=== PATIENT | male | born 1965 | race Caucasian/White ===

== ENCOUNTER 2024-04-10 06:27 | Day surgery (SDC) | payer BC, SELFPAY ==
[2024-04-02 09:06] VITALS: BMI 27.9
[2024-04-10] VITALS (9 sets, daily range): BP systolic 114–163; BP diastolic 78–98; BMI 27.9; BMI 28.4
[2024-04-10] MEDS: TYLENOL 1000 MG PO (08:54)
[2024-04-10] MEDS: NORMOSOL-R 1000 IV (09:07)
--- NOTE | 2024-04-10 09:52 | W.SUR.PREOP ---
Pre-Operative Surgical Note
-
I have examined this patient prior to the performance of the scheduled procedure.
The patient's condition is unchanged from the time of the current History and
Physical and the patient is able to undergo the scheduled procedure.
--- NOTE | 2024-04-10 11:55 | W.IMMPOSTOP ---
Surgical Immed Post Op Note
-
Primary Surgeon: Jasvir Garcia MD
Assisting Surgeon: None
Pre-op Diagnosis: Left inguinal hernia
Post-op Diagnosis: Same
Procedure Performed: Robotic left inguinal hernia repair with mesh
Anesthesia Type: General
Specimen / Cultures: Left cord lipoma
Estimated Blood Loss: 3 cc
Complications: None
Operative Findings: Indirect left inguinal hernia. No defect noted on the right side. No direct or femoral components. Small cord lipoma reduced and removed. Floor reinforced with a large left Bard 3D max uncoated polypropylene mesh
POST OP PLAN:
Will discharge home with an ice pack after voiding.
--- NOTE | 2024-04-10 12:03 | OR.RPT ---
Operative Report
Operative Report
Patient Name: Garry Razo
: 1965
Date of Operation: 04/10/2024
Preoperative Diagnosis: Reducible Inguinal hernia, left
Postoperative Diagnosis: Same
Procedure(s):
Robotic Left Inguinal Hernia Repair with mesh, (FREDY approach)
Surgeon(s):
Dr. Garcia
Borematic Operator(s):
MARY BETH Ya
Anesthesia: General
Estimated Blood Loss: 3 cc
Urine Output: None
Drains/Lines/Implants: Large 3D Max Bard mid weight polypropylene, uncoated mesh
Specimens: None
Indication for surgery: The patient has a history of groin pain and noted on exam to have a Left inguinal Hernia and possible right inguinal hernia. Following review of therapeutic options they have elected to undergo a minimally invasive repair.
Operative Findings: Indirect left inguinal hernia. No defect noted on the right side. No direct or femoral components. Small cord lipoma reduced and removed. Floor reinforced with a large left Bard 3D max uncoated polypropylene mesh
Details of the operation:
The patient was brought to the Operating Room and placed in the supine position with the arms tucked. IV antibiotics were infused and Venodyne stockings placed. Following uneventful induction of general endotracheal anesthesia, an orogastric tube
were placed. The abdomen was prepped and draped in the usual sterile fashion. The abdomen was entered using a Veress technique which required 1 pass, pneumoperitoneum to 15 mmHg was obtained without difficulty. An 8mm trochar was passed through
the abdominal wall roughly 20 cm cephalad to the inguinal canal. We then confirmed that no inadvertent injury was made while passing the trocar or Veress needle. We then placed two additional 8 mm ports in the left upper and right upper quadrants.
We then docked the robot with a Prograsper in the left hand port and monopolar scissors in the right. A left inguinal hernia could be readily appreciated, and there was no defect on the right. We then began by creating a flap on the left side at
the level of the ASIS laterally working our way medially to the medial umbilical fold. Staying onto the peritoneum we were able to circumferentially dissect around the hernia sac and and peel it off of the underlying spermatic cord and testicular
vessels, taking care to preserve them. Medially we identified the midline pubis as well as Ishan's ligament and ensured to dissect 2 cm below the pubic rim over the bladder. After exposure of the entire myopectineal orifice we identified and
reduced: A small sized indirect inguinal hernia, no direct inguinal hernia, no femoral hernia, and a small cord lipoma, which was removed
We then fixated a large 3D max mesh with a 2-0 Vicryl stitch at coopers medially and superior laterally. The flap was then closed with a running 2-0 barbed monocryl suture ensuring that the tail was cut flush with the medial fat pad so that no
barbs were exposed. During the closure of the flap a suction cannula was inserted and 20 cc of quarter percent Marcaine was instilled. The area in the flap cavity was then evacuated of air confirming that the mesh was flush and there were no
folds. There was no rent in the peritoneum. All needles, instruments as well as the lipoma were then removed and the robot was undocked. The abdomen was then desufflated, and pneumoperitoneum evacuated. All skin sites were then closed with 4-0
Monocryl followed by Dermabond. Counts were correct and overall, the patient tolerated the procedure well and was taken to the Recovery Room postoperatively in stable condition.
Preeti was the attending physician and performed the procedure with assistance of the PA above. The assistance of Park Cárdenas was required due to the complexity of the procedure. During the procedure Park assisted with retraction, passing instruments,
specimen removal, and closure of the wound. I was present for all portions of the case except for skin closure.
Jasvir Garcia MD
== END 2024-04-10 13:42 | disposition home or self-care (01) ==
LOC: SDS 06:27
PROVIDERS: ATTENDING PHYSICIAN Surgery; FAMILY PHYSICIAN Family Medicine
DX: K40.90 Unilateral inguinal hernia, without obstruction or gangrene, not specified as recurrent (principal); D17.6 Benign lipomatous neoplasm of spermatic cord
CPT/HCPCS: 49650; 88304; 36415; 93005; C1781

== ENCOUNTER 2024-06-24 12:06 | Emergency (ER) | payer OTHER, BC, SELFPAY ==
[2024-06-24 12:16] VITALS: BP 162/100
--- NOTE | 2024-06-24 13:22 | ED.GENMED ---
History of Present Illness
General
Chief Complaint: Musculo-Skeletal Complaint
Source: patient
Exam Limitations: none
Time Seen by Provider: 06/24/24 13:07
Nursing documentation reviewed up to this point in time: agreed with
History of Present Illness
History of Present Illness:
59 y/o M with h/o previous L knee problems
previous arthroscopy
here with L knee pain after twisting injury today when he was at work and slipped on a bottle on the ground and twisted his knee somehow but did not fall
he has mostly medial pain and some swelling
the pain is worse with flexion
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
no numbness/tingling/weakness, hip pain, ankle pain
pain is even present in seated position
Past History
Past History
ED Past Medical History: None
ED Past Surgical History: Orthopedic
Social History
Tobacco: Smoker
Alcohol: Occasional
Drug: None
Personal:
Living: with family
Employment: Employed
Family History
Family History: Negative Early CAD
Review of Systems
Review of Systems
Allergies reviewed?: Yes
All Other Systems: Not applicable
Phy Exam
Physical Exam
Physical Exam:
GENERAL: Alert , in no apparent distress, comfortable at rest
HEAD: NCAT
CV: 2+ DP PULSES B/L
NEUROLOGICAL: Alert and oriented, no focal neuro deficits, , 5/5 strength, sensation intact, ambulation slight limp left leg
SKIN: Warm and dry,
MUSCULOSKELETAL: Mild suprapatellar joint effusion, no erythema, tender medially, most pain with flexion but able to flex 45 degrees, some laxity with valgus stress right
able to straight leg raise
calf nontender
PSYCH: Normal and appropriate interaction.
Course
Orders/Labs/Results
Orders:
Orders
06/24/24 13:19
CR Knee - Left 4 Or More View* Urgent
Comment:
Reason For Exam: twisted, knee pain
Vital Signs
Initial and Last Documented VS:
Initial Vital Signs
Temp Pulse Resp BP Pulse Ox
98.4 F 77 18 162/100 99
06/24/24 12:16 06/24/24 12:16 06/24/24 12:16 06/24/24 12:16 06/24/24 12:16
Last Documented Vital Signs
Temp Pulse Resp BP Pulse Ox
98.4 F 68 18 150/90 99
06/24/24 12:16 06/24/24 14:40 06/24/24 12:16 06/24/24 14:40 06/24/24 12:16
MDM/Problems Addressed
Differential Diagnosis Includes:
meniscus injury, MCL strain, ACL strain, effusion
MDM/Problems Addressed:
59 y/o M with previous knee injury and arthroscopy in the past
here with L medial knee pain and swelling after a near fall today with twisting
he says previously he had 2 arthroscopies and was told after the 2nd one that he had 'no meniscus left'
pt says his pain is worse with flexion, even in seated position
able to weight bear with pain
no hip or ankle pain
on exam pt has minimal effusion
able to flex
pain with flexion and varus and valgus stress
neg ant/post drawer
xrays indep reviewed tibial [id number] chrnoic changes; otherwise nad
knee immobilizer, f/u ortho
*Critical Care Note
Total Time (30-74mins, 75-104mins- exclusive of procedures): Not Applicable
ED Attending Note
-
Portions of this chart may have been created with voice recognition software.� Occasional wrong word or��sound alike� substitutions may have occurred due to the inherent limitations of voice recognition software.
Discharge Plan
Departure
Patient Disposition: Home (Routine Discharge)
Date of Disposition: 06/24/24
Time of Disposition: 14:25
Patient with high blood pressure during this ER visit?: Yes
Condition: Fair
Covid-19: Not Applicable
Discharge Problem:
Left knee sprain
Instructions: Knee Sprain (DC), BLOOD PRESSURE
Prescriptions:
No Action
ibuprofen 400 mg Tablet
400 mg PO Q6H PRN (Reason: pain)
citrulline Powder
1 ea PO DAILY
Creatine & Protein Shake
1 unit PO DAILY
acetaminophen [acetaminophen] 325 mg tablet
650 mg PO Q6HPRN PRN (Reason: mild pain) Qty: 14 0RF
ibuprofen 600 mg tablet
600 mg PO Q6H PRN (Reason: pain) Qty: 14 0RF
Referrals:
Martinez Cisneros MD [Active] - Follow up in 5-7 days
NONE,* [Family Provider] -
Activity Restrictions/Additional Instructions:
YOU COULD HAVE A LIGAMENTOUS INJURY
WEAR THE KNEE IMMOBILIZER WHILE AWAKE
MOTRIN 800 MG 3 TIMES ADAY WITH FOOD FOR 3-5 DAYS FOR PAIN AND INFLAMMATION
ICE OFF AND ON
USE THE CRUTCHES I TAMARAOU NEED TO TO HELP WALK
FOLLOW UP WITH ORTHO/WORKMAN'S COMP
RETURN FOR ANY CONCERNS.
Interventions
Interventions:
*Risk Screen - Suicide Last Done: 06/24/24 12:25
*General Assessment Last Done: 06/24/24 12:25
*Neglect/Abuse Screening Last Done: 06/24/24 12:25
ED- Fall Risk Assessment Last Done: 06/24/24 12:25
*Nursing Disposition Last Done: 06/24/24 14:40
ED-Musculoskeletal Assessment Last Done: 06/24/24 12:25
Discharge Date and Time
Discharge Date/Time: 06/24/24 14:42
Print Language: ARGENTINE
[2024-06-24 14:40] VITALS: BP 150/90
== END 2024-06-24 14:42 | disposition home or self-care (01) ==
LOC: EMR 12:06
PROVIDERS: EMERGENCY PHYSICIAN Emergency Medicine
DX: S83.92XA Sprain of unspecified site of left knee, initial encounter (principal); M25.462 Effusion, left knee; X50.1XXA Overexertion from prolonged static or awkward postures, initial encounter; Y93.89 Activity, other specified; Y92.89 Other specified places as the place of occurrence of the external cause; Y99.0 Civilian activity done for income or pay; R03.0 Elevated blood-pressure reading, without diagnosis of hypertension; M54.30 Sciatica, unspecified side; M19.90 Unspecified osteoarthritis, unspecified site; F43.10 Post-traumatic stress disorder, unspecified; F17.200 Nicotine dependence, unspecified, uncomplicated; Z88.0 Allergy status to penicillin
CPT/HCPCS: 99283; 29505; 73564

== ENCOUNTER 2024-10-02 14:15 | Emergency (ER) | payer BC, SELFPAY ==
[2024-10-02 14:17] VITALS: BP 177/107
[2024-10-02 14:49] LABS: % Basophils 0.9 % (0-2); % Eosinophils 1.8 % (0-6); % Lymphocytes 26.9 % (20.5-51.1); % Monocytes 8.3 % (1.7-9.3); % Neutrophils 61.1 % (42.2-75.2); Absolute Basophils 0.1 10^3/uL (0-0.2); Absolute Eosinophils 0.1 10^3/uL (0-0.7); Absolute Immature Granulocytes 0.1 10^3/uL (0-0.05); Absolute Lymphocytes 2.1 10^3/uL (1.2-3.4); Absolute Monocytes 0.7 10^3/uL (0.1-0.6); Absolute Neutrophils 4.9 10^3/uL (1.4-6.5); Hematocrit 44.7 % (39.0-52.0); Mean Corp Hgb Conc. 33.6 g/dL (33.0-37.0); Mean Corpuscular Hgb 31.2 pg (27.0-31.0); Mean Corpuscular Volume 92.9 fL (80.0-94.0); Mean Platelet Volume 8.8 fL (7.4-10.4); Nucleated Red Blood Cells % 0 % (-); Platelet Count 228 10^3/uL (130-400); Red Blood Cell Count 4.81 10^6/uL (4.70-6.10); Red Cell Dist. Width 12.5 % (11.5-14.5); White Blood Cell Count 7.9 10^3/uL (4.8-10.8)
[2024-10-02 15:01] LABS: ALT (SGPT) 30 U/L (0-50); AST (SGOT) 33 U/L (17-59); Albumin 4.6 g/dl (3.5-5.0); Alkaline Phosphatase 63 U/L (38-126); Blood Urea Nitrogen 21 mg/dl (9-20); Calcium 9.1 mg/dl (8.4-10.2); Carbon Dioxide 28 mmol/L (22-30); Chloride 102 mmol/L (98-107); Glucose 89 mg/dl (70-99); Potassium 4.4 mmol/L (3.5-5.1); Sodium 136 mmol/L (135-145); Total Bilirubin 0.5 mg/dl (0.2-1.3); Total Protein 6.7 g/dl (6.3-8.2); eGFR > 60.00
[2024-10-02 15:02] VITALS: BP 183/111
--- NOTE | 2024-10-02 15:39 | ED.GENMED ---
History of Present Illness
<MARV Wiseman Last Filed: 10/02/24 16:06>
General
Chief Complaint: Numbness
Source: patient
Exam Limitations: none
Time Seen by Provider: 10/02/24 14:53
History of Present Illness
History of Present Illness:
59-year-old male does not take any medications regularly presents with numbness to both arms and legs over the past 2 weeks getting worse. He also feels that his right leg and right arm feel weak. He denies associated headache. No rash or fever
no chest pain or shortness of breath. No urinary symptoms. No vomiting. Does not typically seek health care has not seen a provider in over 10 years.
Past History
<MARV Wiseman Last Filed: 10/02/24 16:06>
Past History
ED Past Medical History: None
ED Past Surgical History: Orthopedic
Social History
Tobacco: Smoker
Alcohol: Occasional
Drug: None
Personal:
Living: with family
Employment: Employed
Family History
Family History: Negative Early CAD
Phy Exam
<MARV Wiseman Last Filed: 10/02/24 16:06>
Physical Exam
Physical Exam:
General: Well-appearing male no acute respiratory distress
HEENT: Normocephalic atraumatic pupils equal round reactive to light no asymmetry
Heart: Regular rate and rhythm no murmurs lungs: Clear no wheeze neurologic exam: Alert and oriented normal gait conversing appropriately no asymmetry of the face good strength to the upper and lower extremities bilateral patellar reflexes 2+
Bilateral Achilles reflexes 1+. No dysarthria or aphasia
Extremities: No cyanosis
Course
<MARV Wiseman Last Filed: 10/02/24 16:06>
Orders/Labs/Results
Orders:
Orders
10/02/24 14:21
Electrocardiogram (*1) Urgent
Reason for Study: Vertigo / Dizzy
EKG- Treatment ONCE
10/02/24 14:37
Complete Blood Count/With Diff Urgent
Comprehensive Metabolic Panel Urgent
Abnormal Lab Results
10/02/24
14:37
MCH 31.2 H pg
(27.0-31.0)
Abs Immat Gran (auto) 0.1 H 10^3/uL
(0-0.05)
Absolute Monos (auto) 0.7 H 10^3/uL
(0.1-0.6)
Immature Gran % 1.0 H %
(0-0.5)
BUN 21 H mg/dl
(9-20)
10/02/24 14:37
10/02/24 14:37
Vital Signs
Initial and Last Documented VS:
Initial Vital Signs
Temp Pulse Resp BP Pulse Ox
97.8 F 69 18 177/107 100
10/02/24 14:17 10/02/24 14:17 10/02/24 14:17 10/02/24 14:17 10/02/24 14:17
Last Documented Vital Signs
Temp Pulse Resp BP Pulse Ox
97.8 F 69 18 178/102 96
10/02/24 14:17 10/02/24 14:17 10/02/24 14:17 10/02/24 15:50 10/02/24 15:44
Favianlt;Gallo Childers, DO - Last Filed: 10/02/24 15:46>
Orders/Labs/Results
Orders:
Orders
10/02/24 14:21
Electrocardiogram (*1) Urgent
Reason for Study: Vertigo / Dizzy
EKG- Treatment ONCE
10/02/24 14:37
Complete Blood Count/With Diff Urgent
Comprehensive Metabolic Panel Urgent
Abnormal Lab Results
10/02/24
14:37
MCH 31.2 H pg
(27.0-31.0)
Abs Immat Gran (auto) 0.1 H 10^3/uL
(0-0.05)
Absolute Monos (auto) 0.7 H 10^3/uL
(0.1-0.6)
Immature Gran % 1.0 H %
(0-0.5)
BUN 21 H mg/dl
(9-20)
10/02/24 14:37
10/02/24 14:37
Vital Signs
Initial and Last Documented VS:
Initial Vital Signs
Temp Pulse Resp BP Pulse Ox
97.8 F 69 18 177/107 100
10/02/24 14:17 10/02/24 14:17 10/02/24 14:17 10/02/24 14:17 10/02/24 14:17
Last Documented Vital Signs
Temp Pulse Resp BP Pulse Ox
97.8 F 69 18 178/102 96
10/02/24 14:17 10/02/24 14:17 10/02/24 14:17 10/02/24 15:50 10/02/24 15:44
<León Fabian PA-C - Last Filed: 10/02/24 16:06>
MDM/Problems Addressed
Differential Diagnosis Includes:
Patient with bilateral paresthesias. No objective weakness on exam. Patient's blood pressure is elevated here 170s over 110s. EKG shows sinus rhythm labs reviewed without significant finding. Discussed with emergency room attending saw the
patient. Also reach out to neurology
<León Fabian PA-C - Last Filed: 10/02/24 16:06>
*Critical Care Note
Total Time (30-74mins, 75-104mins- exclusive of procedures): Not Applicable
<León Fabian PA-C - Last Filed: 10/02/24 16:06>
Update Note
Update Note:
Patient reevaluated still stable discussed with emergency room attending as well as neurology. No acute reason for admission to hospital. Patient is high answered. Recommend initiation on lisinopril. He is hesitant to take any medicine he wants
to take this home and recheck his blood pressure at home. He will follow-up with his treating doctor for his back pain and neurology follow-up was provided. Return precautions given
ED Attending Note
<León Fabian PA-C - Last Filed: 10/02/24 16:06>
-
Portions of this chart may have been created with voice recognition software.� Occasional wrong word or��sound alike� substitutions may have occurred due to the inherent limitations of voice recognition software.
<Gallo Childers DO - Last Filed: 10/02/24 15:46>
ED Attending Note
Patient seen and examined by attending physician: Yes
I performed the substantive portion of visit, reviewed & personally made and approve the management plan that is documented in note by myself or JANEE.: Yes
ED Attending Note:
Seen with PA examined independently 59-year-old male 20 years of right hand numbness week or so of bilateral leg numbness and bilateral hand numbness has sciatica schedule get a steroid injection next week
Discharge Plan
Departure
Patient Disposition: Home (Routine Discharge)
Date of Disposition: 10/02/24
Time of Disposition: 16:00
Patient with high blood pressure during this ER visit?: Yes
Discharge Problem:
Neuropathy
Instructions: Peripheral Neuropathy (DC), BLOOD PRESSURE
Prescriptions:
New
lisinopril 5 mg tablet
5 mg PO DAILY Qty: 30 0RF
No Action
ibuprofen 400 mg Tablet
400 mg PO Q6H PRN (Reason: pain)
citrulline Powder
1 ea PO DAILY
Creatine & Protein Shake
1 unit PO DAILY
acetaminophen [acetaminophen] 325 mg tablet
650 mg PO Q6HPRN PRN (Reason: mild pain) Qty: 14 0RF
ibuprofen 600 mg tablet
600 mg PO Q6H PRN (Reason: pain) Qty: 14 0RF
Referrals:
NONE,* [Family Provider] -
Activity Restrictions/Additional Instructions:
Continue to check your blood pressure. Start lisinopril if your blood pressure remains elevated. Follow-up with your back pain doctor and consider imaging of your lumbar spine and cervical spine. Consider following up with neurology, Dr. Finnegan
Rupa in [place] for further evaluation. Please return here for any worsening symptoms.
Interventions
Interventions:
*Risk Screen - Suicide Last Done: 10/02/24 14:17
*General Assessment Last Done: 10/02/24 14:59
*Neglect/Abuse Screening Last Done: 10/02/24 14:59
*ED COVID-19 Vaccine History Last Done: 10/02/24 14:59
ED- Neurological Assessment Last Done: 10/02/24 14:59
Discharge Date and Time
Print Language: DUTCH
[2024-10-02 15:50] VITALS: BP 178/102
[2024-10-02 16:00] VITALS: BP 160/96
== END 2024-10-02 16:16 | disposition home or self-care (01) ==
LOC: EMR 14:15
PROVIDERS: Emergency Medicine; EMERGENCY PHYSICIAN Emergency Medicine
DX: G62.9 Polyneuropathy, unspecified (principal); F17.200 Nicotine dependence, unspecified, uncomplicated; R03.0 Elevated blood-pressure reading, without diagnosis of hypertension
CPT/HCPCS: 99284; 80053; 85025; 93005